=== PATIENT | female | born 1970 | race Caucasian/White ===

== ENCOUNTER 2017-09-03 15:50 | Emergency (ER) | payer SELFPAY ==
[2017-09-03 15:59] VITALS: BP 123/47
--- NOTE | 2017-09-03 16:17 | UC ---
Skin Complaint HPI - HPI Summary HPI Summary: Patient cut her right ring finger while cleaning the outside of her oven, she cut it on a piece of steel. She arrives with bleeding controlled and neuo-vasc intact. She reports full range of motion. Tetanus is up to date. - History of Current Complaint Chief Complaint: UCUpperExtremity Time Seen by Provider: 09/03/17 16:07 Stated Complaint: FINGER INJURY Hx Obtained From: Patient Hx Last Menstrual Period: 08/23/17 Onset/Duration: Sudden Onset, Lasting Hours Skin Exposure Onset/Duration: Hours Ago Timing: Constant Onset Severity: Mild Current Severity: Mild Pain Intensity: 2 Location: Discrete - right ring finger Character: Pain Aggravating Factor(s): Touch Alleviating Factor(s): Other - elevation of hand. Associated Signs & Symptoms: Positive: Negative Related History: Trauma - Allergy/Home Medications Allergies/Adverse Reactions: Allergies Allergy/AdvReac Type Severity Reaction Status Date / Time ANESTHESIA Allergy Severe Vomiting Uncoded 11/26/12 16:53 methyergonovine Allergy Intermediate Itching Uncoded 09/03/17 16:01 Review of Systems Constitutional: Negative Skin: Other - skin avulsion of right ring finger. Eyes: Negative ENT: Negative Respiratory: Negative Cardiovascular: Negative Gastrointestinal: Negative Genitourinary: Negative Motor: Negative Neurovascular: Negative Musculoskeletal: Negative Neurological: Negative Psychological: Negative All Other Systems Reviewed And Are Negative: Yes PMH/Surg Hx/FS Hx/Imm Hx Previously Healthy: Yes - Surgical History Surgical History: Yes Surgery Procedure, Year, and Place: 01/2012, ABD SURGERY FOR OVARIAN CYST 04/2002, NASAL SURGERY FOR DEVIATED SEPTUM 1985 - Family History Known Family History: Negative: Cardiac Disease, Hypertension, Diabetes - Social History Occupation: Unemployed Lives: Alone Alcohol Use: None Substance Use Type: None Smoking Status (MU): Never Smoked Tobacco - Immunization History Most Recent Influenza Vaccination: 2012 Most Recent Tetanus Shot: 2006 Physical Exam Triage Information Reviewed: Yes Appearance: Well-Appearing Vital Signs: Initial Vital Signs Temp 98.8 F 09/03/17 15:54 Pulse 79 09/03/17 15:54 Resp 20 09/03/17 15:54 BP 123/47 09/03/17 15:54 Pulse Ox 100 09/03/17 15:54 Vital Signs Reviewed: Yes Eye Exam: Normal ENT Exam: Normal Neck exam: Normal Neck: Positive: 1 Respiratory Exam: Normal Cardiovascular Exam: Normal Abdominal Exam: Normal Musculoskeletal Exam: Normal Neurological Exam: Normal Skin Exam: Other - right ring finger with skin avulsion of the proximal cuticle. bleeding controlled, and neuro-vasc intact. rom intact. Course/Dx - Course Course Of Treatment: Patient presents with skin avulsion of the right ring finger. The wound was irriagated, and the patient neuo-vasc intact. rom intact . Tetanus up to date. Bacitracin and DS with finger guard applied. Discharge instruction included wound care, keep it clean and dry, apply bacitracin and dsd daily. If increased redness, swelling, warmth or pain develop to directly to the ER for re-evaluations. Patient verbalized understanding of and in agreement with the discharge plan. - Differential Diagnoses - Skin Complaint Differential Diagnoses: Other - skin avulsion - Diagnoses Provider Diagnoses: skin avlusion Discharge - Sign-Out/Discharge Documenting (check all that apply): Patient Departure - Discharge Plan Condition: Stable Disposition: HOME Patient Education Materials: Skin Avulsion (ED) Referrals: Octavio Easton MD [Primary Care Provider] - Additional Instructions: Follow up with your doctor in three days. - Billing Disposition and Condition Condition: STABLE Disposition: Home
== END 2017-09-03 16:30 | disposition home or self-care (01) ==
LOC: UCEAST 15:50
DX: S61.214A Laceration without foreign body of right ring finger without damage to nail, initial encounter (principal); W26.8XXA Contact with other sharp object(s), not elsewhere classified, initial encounter; Y93.E9 Activity, other interior property and clothing maintenance; Y92.000 Kitchen of unspecified non-institutional (private) residence as the place of occurrence of the external cause; Z88.4 Allergy status to anesthetic agent; Z88.8 Allergy status to other drugs, medicaments and biological substances
CPT/HCPCS: 99212; G0463

== ENCOUNTER 2018-05-20 15:04 | Emergency (ER) | payer OTHER ==
[2018-05-20] MEDS ORDERED: Nicotine Inhaler* 10 MG AMP INH PRN (15:23)
[2018-05-20 16:08] LABS: Urine Appearance Cloudy; Urine Bilirubin Negative (Negative); Urine Blood Negative (Negative); Urine Color Yellow; Urine Glucose Negative (Negative); Urine Ketones Trace (Negative); Urine Nitrite Negative (Negative); Urine Protein Negative (Negative); Urine Specific Gravity 1.021 (1.010-1.030); Urine Urobilinogen Negative (Negative)
[2018-05-20 16:13] LABS: Barbiturates Urine Screen None Detected (None Detect); Benzodiazepine Urine Screen None Detected (None Detect); Urine Cannabinoids Screen None Detected (None Detect)
[2018-05-20 16:21] LABS: Hematocrit 27 % (33-41); Hemoglobin 8.4 g/dL (12.0-16.0); Mean Corpuscular HGB Conc 31 g/dL (31-36); Mean Corpuscular Hemoglobin 22 pg (27-31); Mean Corpuscular Volume 70 fL (80-97); Platelet Count 326 10^3/uL (150-450); Red Blood Count 3.87 10^6 /uL (3.70-4.87); Red Cell Distribution Width 16 % (10.5-15); White Blood Count 3.7 10^3/uL (3.5-10.8)
[2018-05-20 16:22] LABS: ABS Basophils 0.1 10^3/ul (0-0.2); ABS Eosinophils 0.1 10^3/ul (0-0.6); ABS Lymphocytes 1.6 10^3/ul (1.0-4.8); ABS Monocytes 0.3 10^3/ul (0-0.8); ABS Neutrophils 1.7 10^3/ul (1.5-7.7); ABS Nucleated RBC 0 10^3/ul; Eosinophil % 1.7 %; Lymphocyte % 43.6 %; Mean Platelet Volume 7.3 fL (7.4-10.4); Nucleated Red Blood Cells % 0
[2018-05-20 16:25] LABS: ALT 21 U/L (7-52); AST 24 U/L (13-39); Albumin/Globulin Ratio 1.6 (1-3); Alkaline Phosphatase 52 U/L (34-104); Anion Gap 5 mmol/L (2-11); BUN/Creatinine Ratio 11.8 (8-20); Blood Urea Nitrogen 9 mg/dL (6-24); CO2 Carbon Dioxide 28 mmol/L (22-32); Calcium 8.8 mg/dL (8.6-10.3); Chloride 106 mmol/L (101-111); EGFR African American 97.9 (>60); EGFR Non-African American 80.9 (>60); Globulin 2.5 g/dL (2-4); Glucose 86 mg/dL (70-100); Potassium 4.4 mmol/L (3.5-5.0); Sodium 139 mmol/L (135-145); Total Protein 6.5 g/dL (6.4-8.9)
[2018-05-20 16:41] LABS: Acetaminophen < 15 mcg/mL; Alcohol < 10 mg/dL (<10); Salicylate < 2.50 mg/dL (<30)
--- NOTE | 2018-05-20 16:46 | ED ---
Psychiatric Complaint - HPI Summary HPI Summary: The patient is a 47 y/o F presenting to [facility] accompanied by with a chief complaint of SI that has been gradually worsening over the past few days. She states that she's been stressed out while working, going to school, and taking care of her family of 7, causing her to have SI. Although her SI has since resolved, she reports a plan of "disabling the air bag in her car, using the seat-belt restraint to make sure she isn't thrown out of the car, and then crashing into a tree to induce internal decapitation." She has hx of anxiety and depression; she takes Effexor as prescribed. - History Of Current Complaint Chief Complaint: EDSuicidal Time Seen by Provider: 05/20/18 15:22 Hx Obtained From: Patient Hx Last Menstrual Period: 08/23/17 Onset/Duration: Gradual Onset, Resolved Timing: Days Severity Initially: Moderate Severity Currently: Mild Character: Depressed Aggravating Factor(s): Recent Stress Alleviating Factor(s): Nothing Associated Signs And Symptoms: Positive: Sleep Disturbance Related History: Positive For: Prior Psychiatric Issues - anxiety and depressin Has Suicidal: Reports: Thoughts, With A Plan Recent Stressor(s): school, work, family - Allergies/Home Medications Allergies/Adverse Reactions: Allergies Allergy/AdvReac Type Severity Reaction Status Date / Time ANESTHESIA Allergy Severe Vomiting Uncoded 05/20/18 15:08 methyergonovine Allergy Intermediate Itching Uncoded 05/20/18 15:08 Home Medications: Home Medications Melatonin/Pyridoxine HCl (B6) [Melatonin 3 mg Tablet] 1 each PO BEDTIME PRN [History Confirmed 05/20/18] Multivitamin [Multivitamins] 1 cap PO DAILY 05/20/18 [History Confirmed 05/20/18 ] PMH/Surg Hx/FS Hx/Imm Hx Endocrine/Hematology History: Denies: Hx Diabetes Respiratory History: Denies: Hx Asthma Opthamlomology History: Denies: Hx Legally Blind EENT History: Denies: Hx Deafness Psychiatric History: Reports: Hx Anxiety, Hx Depression - Surgical History Surgery Procedure, Year, and Place: 01/2012, ABD SURGERY FOR OVARIAN CYST 04/2002, NASAL SURGERY FOR DEVIATED SEPTUM 1985 Infectious Disease History: No Infectious Disease History: Denies: Hx Clostridium Difficile, Hx Hepatitis, Hx Human Immunodeficiency Virus (HIV), Hx of Known/Suspected MRSA, Hx Shingles, Hx Tuberculosis, Hx Known/ Suspected VRE, Hx Known/Suspected VRSA, History Other Infectious Disease, Traveled Outside the [place] in Last 30 Days - Family History Known Family History: Negative: Cardiac Disease, Hypertension, Diabetes - Social History Alcohol Use: None Hx Substance Use: No Substance Use Type: Reports: None Hx Tobacco Use: No Smoking Status (MU): Never Smoked Tobacco Review of Systems Negative: Fever, Chills Negative: Erythema Negative: Sore Throat Negative: Chest Pain Negative: Shortness Of Breath, Cough Positive: Other - NEGATIVE: changes in diet or appetite. Negative: Abdominal Pain, Vomiting, Nausea Negative: dysuria, hematuria Negative: Myalgia, Edema Negative: Rash Neurological: Other - POSITIVE: interrupted sleep; NEGATIVE: dizziness Positive: Other - SI with plan but no attempt that has resolved All Other Systems Reviewed And Are Negative: Yes Physical Exam - Summary Physical Exam Summary: General: Well appearing, no distress Cardiovascular: Skin is well perfused Pulmonary: No respiratory distress, no tachypnea Abdomen: Non-distended Skin: Warm, pink, dry Psych: Normal affect, no longer suicidal Neuro: A&Ox3 Triage Information Reviewed: Yes Vital Signs On Initial Exam: Initial Vitals Temp Pulse Resp BP Pulse Ox 98 F 78 18 147/76 98 05/20/18 15:09 05/20/18 15:09 05/20/18 15:09 05/20/18 15:09 05/20/18 15:09 Vital Signs Reviewed: Yes Diagnostics - Vital Signs Vital Signs Temp Pulse Resp BP Pulse Ox 05/20/18 15:09 98 F 78 18 147/76 98 - Laboratory Lab Results: Lab Results 05/20/18 05/20/18 05/20/18 Range/Units 13:35 15:23 16:01 WBC 3.7 (3.5-10.8) 10^3/uL RBC 3.87 (3.70-4.87) 10^6 /uL Hgb 8.4 L (12.0-16.0) g/dL Hct 27 L (33-41) % MCV 70 L (80-97) fL MCH 22 L (27-31) pg MCHC 31 (31-36) g/dL RDW 16 H (10.5-15) % Plt Count 326 (150-450) 10^3/uL MPV 7.3 L (7.4-10.4) fL Neut % (Auto) 46.3 % Lymph % (Auto) 43.6 % [place] % (Auto) 7.0 % Eos % (Auto) 1.7 % Baso % (Auto) 1.4 % Absolute Neuts (auto) 1.7 (1.5-7.7) 10^3/ul Absolute Lymphs (auto) 1.6 (1.0-4.8) 10^3/ul Absolute Monos (auto) 0.3 (0-0.8) 10^3/ul Absolute Eos (auto) 0.1 (0-0.6) 10^3/ul Absolute Basos (auto) 0.1 (0-0.2) 10^3/ul Absolute Nucleated RBC 0 10^3/ul Nucleated RBC % 0 Sodium (135-145) mmol/L Potassium (3.5-5.0) mmol/L Chloride (101-111) mmol/L Carbon Dioxide (22-32) mmol/L Anion Gap (2-11) mmol/L BUN (6-24) mg/dL Creatinine (0.51-0.95) mg/dL Est GFR ( Amer) (>60) Est GFR (Non-Af Amer) (>60) BUN/Creatinine Ratio (8-20) Glucose (70-100) mg/dL Calcium (8.6-10.3) mg/dL Total Bilirubin (0.2-1.0) mg/dL AST (13-39) U/L ALT (7-52) U/L Alkaline Phosphatase (34-104) U/L Total Protein (6.4-8.9) g/dL Albumin (3.2-5.2) g/dL Globulin (2-4) g/dL Albumin/Globulin Ratio (1-3) TSH Urine Color Yellow Urine Appearance Cloudy Urine pH 5.0 (5-9) Ur Specific [place] 1.021 (1.010-1.030) Urine Protein Negative (Negative) Urine Ketones Trace A (Negative) Urine Blood Negative (Negative) Urine Nitrate Negative (Negative) Urine Bilirubin Negative (Negative) Urine Urobilinogen Negative (Negative) Ur Leukocyte Esterase Negative (Negative) Urine Glucose Negative (Negative) Urine Ascorbic Acid * A (Negative) Salicylates Urine Opiates Screen None detected (None Detect) Acetaminophen Ur Barbiturates Screen None detected (None Detect) Ur Phencyclidine Scrn None detected (None Detect) Ur Amphetamines Screen None detected (None Detect) U Benzodiazepines Scrn None detected (None Detect) Urine Cocaine Screen None detected (None Detect) U Cannabinoids Screen None detected (None Detect) Serum Alcohol 05/20/18 Range/Units 16:01 WBC (3.5-10.8) 10^3/uL RBC (3.70-4.87) 10^6 /uL Hgb (12.0-16.0) g/dL Hct (33-41) % MCV (80-97) fL MCH (27-31) pg MCHC (31-36) g/dL RDW (10.5-15) % Plt Count (150-450) 10^3/uL MPV (7.4-10.4) fL Neut % (Auto) % Lymph % (Auto) % [place] % (Auto) % Eos % (Auto) % Baso % (Auto) % Absolute Neuts (auto) (1.5-7.7) 10^3/ul Absolute Lymphs (auto) (1.0-4.8) 10^3/ul Absolute Monos (auto) (0-0.8) 10^3/ul Absolute Eos (auto) (0-0.6) 10^3/ul Absolute Basos (auto) (0-0.2) 10^3/ul Absolute Nucleated RBC 10^3/ul Nucleated RBC % Sodium 139 (135-145) mmol/L Potassium 4.4 (3.5-5.0) mmol/L Chloride 106 (101-111) mmol/L Carbon Dioxide 28 (22-32) mmol/L Anion Gap 5 (2-11) mmol/L BUN 9 (6-24) mg/dL Creatinine 0.76 (0.51-0.95) mg/dL Est GFR ( Amer) 97.9 (>60) Est GFR (Non-Af Amer) 80.9 (>60) BUN/Creatinine Ratio 11.8 (8-20) Glucose 86 (70-100) mg/dL Calcium 8.8 (8.6-10.3) mg/dL Total Bilirubin 0.50 (0.2-1.0) mg/dL AST 24 (13-39) U/L ALT 21 (7-52) U/L Alkaline Phosphatase 52 (34-104) U/L Total Protein 6.5 (6.4-8.9) g/dL Albumin 4.0 (3.2-5.2) g/dL Globulin 2.5 (2-4) g/dL Albumin/Globulin Ratio 1.6 (1-3) TSH Pending Urine Color Urine Appearance Urine pH (5-9) Ur Specific [place] (1.010-1.030) Urine Protein (Negative) Urine Ketones (Negative) Urine Blood (Negative) Urine Nitrate (Negative) Urine Bilirubin (Negative) Urine Urobilinogen (Negative) Ur Leukocyte Esterase (Negative) Urine Glucose (Negative) Urine Ascorbic Acid (Negative) Salicylates Pending Urine Opiates Screen (None Detect) Acetaminophen Pending Ur Barbiturates Screen (None Detect) Ur Phencyclidine Scrn (None Detect) Ur Amphetamines Screen (None Detect) U Benzodiazepines Scrn (None Detect) Urine Cocaine Screen (None Detect) U Cannabinoids Screen (None Detect) Serum Alcohol Pending Result Diagrams: 05/20/18 16:01 05/20/18 16:01 Lab Statement: Any lab studies that have been ordered have been reviewed, and results considered in the medical decision making process. Course/Dx - Course Course Of Treatment: The patient is a 47 y/o F accompanied by with a chief complaint of SI that has been gradually worsening over the past few days. She states that she's been stressed out more than usual. Although her SI has since resolved, she reports a plan of "disabling the air bag in her car, using the seat-belt restraint to make sure she isn't thrown out of the car, and then crashing into a tree to induce internal decapitation." She has hx of anxiety and depression; she takes Effexor as prescribed. Upon physical exam, the patient is no longer suicidal. In the ED course, the patient was administered Nicotine inhaler. Blood work reveals decreased Hgb, Hct, MCV, MCH, and MPV; elevated RDW. UA reveals trace ketones and ascorbic acid. Toxicology report reveals no substances. Patient is cleared for mental health evaluation. She is diagnosed with anxiety by Dr. Mercado, per mental health statistical clerk advertising Bee Jensen. She will follow up with outpatient care at [facility]. She agrees with this plan and understands need for return to the ED for any new or worsening symptoms. - Differential Dx/Clinical Impression Provider Diagnosis: Anxiety - Physician Notifications Discussed Care Of Patient With: Bee Jensen - mental health statistical clerk advertising Time Discussed With Above Provider: 21:50 Instructed by Provider To: Other - Bee states that the patient can be discharged by Dr. Mercado with dx of anxiety and outpatient follow up. Discharge - Sign-Out/Discharge Documenting (check all that apply): Patient Departure - Patient will be discharged home. Patient Received Moderate/Deep Sedation with Procedure: No - Discharge Plan Condition: Stable Disposition: HOME Patient Education Materials: Help Prevent Suicide (ED), Anxiety (ED) Forms: *Work Release Referrals: [facility] [Outside] (Please follow up as soon as possible ) Octavio Easton MD [Primary Care Provider] - - Billing Disposition and Condition Condition: STABLE Disposition: Home - Attestation Statements Document Initiated by Martinaibe: Yes Documenting Scribe: Anni Pagan Provider For Whom Yareli is Documenting (Include Credential): Dr. Dhaval Pnoce MD Scribe Attestation: Anni Altman scribed for Dr. Dhaval Ponce MD on 05/21/18 at 1059. Scribe Documentation Reviewed: Yes Provider Attestation: The documentation as recorded by the Anni salazar accurately reflects the service I personally performed and the decisions made by me, Dr. Dhaval Ponce MD Status of Scribe Document: Viewed
[2018-05-20 16:57] LABS: TSH (Thyroid Stimulating Horm) 0.68 mcIU/mL (0.34-5.60)
[2018-05-20 22:11] VITALS: BP 124/53
== END 2018-05-20 22:09 | disposition home or self-care (01) ==
LOC: ED 15:04
DX: F41.9 Anxiety disorder, unspecified (principal); F32.9 Major depressive disorder, single episode, unspecified; Z88.8 Allergy status to other drugs, medicaments and biological substances
CPT/HCPCS: 36415; 80053; 80307; 80320; 80329; 81003; 84443; 85025; 99284; G0480

== ENCOUNTER → 2018-11-02 05:49 | Day surgery (SDC) | payer OTHER ==
[~2018-11-02 05:49] MED LIST: Buffered Lidocaine 1% SYRIN* 1 ML/SYRINGE INTRADERM ONE; Dexamethasone IV* 4 MG/ML 1 ML (4 MG) IV SLOW PU ONE; Dexamethasone IV* 4 MG/ML 1 ML (4 MG) ONE; DiMENhydriNATE IV* 50 MG/ML VIAL IV PUSH PRN; Famotidine IV* 10 MG/ML 2 ML (20 mg) IV ONE; Famotidine IV* 10 MG/ML 2 ML (20 mg) ONE; Ibuprofen TAB* 600 MG ONE; Ketorolac INJ* 30 MG/ML 1 ML VIAL ONE; Labetalol IV* 5 MG/ML 20 ML VIAL ONE; Lactated Ringers 1000 ML Bag* 1,000 ML IV SCH; Lidocaine 2% PF * 5 ML VIAL ONE; Midazolam* 1 MG/ML 2 ML VIAL (2 MG) ONE; Naloxone* 0.4 MG/ML 1 ML VIAL IV PRN; Ondansetron INJ* 2 MG/ML VIAL ONE; Propofol* 10 MG/ML 20 ML BTL ONE; Scopolamine 1.5 mg* PATCH ONE; Scopolamine 1.5 mg* PATCH TRANSDERM ONE; fentaNYL* 50 MCG/ML 2 ML VIAL (100 MCG VIAL) IV PRN; fentaNYL* 50 MCG/ML 2 ML VIAL (100 MCG VIAL) ONE
[2018-11-02 09:02] VITALS: BP 129/78
--- NOTE | 2018-11-02 22:01 | OP ---
DATE OF OPERATION: 11/02/18 - [facility] DATE OF : 66 SURGEON: More Coe MD ANESTHESIOLOGIST: Dr. Borjas. ANESTHESIA: General. PRE-OP DIAGNOSIS: Menorrhagia. POST-OP DIAGNOSIS: Menorrhagia. OPERATIVE PROCEDURES: Hysteroscopy, dilation and curettage, and endometrial ablation with NovaSure. ESTIMATED BLOOD LOSS: Minimal. URINE OUTPUT: 100 cc. IV FLUIDS: 700 cc lactated Ringer's. MATERIALS TO LAB: Endometrial curettings. INDICATIONS: This patient is a 47-year-old 5, para 5, who has been followed in the office with persistent, very heavy, abnormal uterine bleeding. Pelvic ultrasound was unremarkable and endometrial biopsy returned benign. After discussing her options, she desired to proceed with an endometrial ablation. She was extensively counseled and consent was signed. FINDINGS: Normal appearing uterine cavity. Endometrial ablation appeared to be effective throughout the uterine cavity afterwards. COMPLICATIONS: None. DESCRIPTION OF PROCEDURE: The risks, benefits, and alternatives were described to the patient and informed consent was obtained. The patient was taken to the operating room with IV running, where general anesthesia was induced and found to be adequate. The patient was prepped and draped in the normal sterile fashion in the high lithotomy position in [facility]. A time-out was performed. The bladder was emptied. A bivalve speculum was placed in the vagina and a single- tooth tenaculum was placed on the anterior cervix. The uterus sounded to about 8 cm and the cervix was then gently dilated using Hegar dilators. A diagnostic hysteroscope was advanced through the cervix into the uterine cavity with saline running. The uterine cavity was well visualized and appeared to be normal with no visible evidence of polyps or fibroids in the cavity. Both ostia were visualized. The uterine cavity was then curetted with a medium banjo curette and the curettings were collected on Telfa. A NovaSure device was then prepared and placed into the uterine cavity without difficulty. The cavity length was measured at 5 cm and the width was 4.1 cm. Power was calculated at 113. After a negative cavity assessment, the ablation was performed and lasted to 2 minutes. The device was then removed. The hysteroscope was replaced into the uterine cavity and there was good ablation of the entire visible cavity noted. The hysteroscope was then removed. The tenaculum was removed with good hemostasis. The speculum was then removed and the patient was returned to the supine position. The patient tolerated the procedure well. Sponge, lap and needle counts were correct x2. [id number]/[facility] #: [id number] [facility] [place] [facility]
== END | disposition home or self-care (01) ==
LOC: OR 05:49
PROVIDERS: ATTEND Obstetrics & Gynecology
DX: N92.4 Excessive bleeding in the premenopausal period (principal); I10 Essential (primary) hypertension; Z87.891 Personal history of nicotine dependence; K21.9 Gastro-esophageal reflux disease without esophagitis; F41.9 Anxiety disorder, unspecified
CPT/HCPCS: 88305; A9270-GY; J1100; J1885; J2250; J2405; J2704; J3010

== ENCOUNTER 2021-08-04 09:20 | Inpatient (IN) ==
[2021-08-04] MEDS ORDERED: Piperacillin/Tazobac ADVAN 3.375 GM in NS 0.9% 100 ml BAG 100 ML IV ONE (10:37)
[2021-08-04] MEDS ORDERED: Lactated Ringers 1000 ml BAG 1,000 ML IV ONE (10:46)
[2021-08-04] MEDS ORDERED: Piperacillin/Tazobac 3.375 GM BAG ONE (11:12)
[2021-08-04] MEDS ORDERED: Vancomycin 1,250 MG in NS 0.9% 250 ml 250 ML IVPB ONE (11:30)
[2021-08-04] MEDS ORDERED: Morphine 2 MG/ML SYRINGE IV PRN (11:47)
[2021-08-04] MEDS ORDERED: Ondansetron 4 mg VIAL 2 MG/ML 2 ml VIAL IV PRN ×2 (11:47→19:01)
[2021-08-04] MEDS ORDERED: Lactulose 30 ml UDC PO PRN (11:47)
[2021-08-04] MEDS ORDERED: Magnesium Hydroxide LIQ 30 ML UDC PO PRN (11:47)
[2021-08-04] MEDS ORDERED: Ondansetron ODT 4 mg TAB 4 MG TAB PO PRN (11:47)
[2021-08-04 12:08] LABS: ABS Lymphocytes 1.4 10^3/ul (1.0-4.8); ABS Monocytes 0.6 10^3/ul (0-0.8); ABS Neutrophils 6.6 10^3/ul (1.5-7.7); Eosinophil % 0.2 %; Hematocrit 41 % (35-47); Hemoglobin 13.3 g/dL (12.0-16.0); Lymphocyte % 16.2 %; Mean Corpuscular HGB Conc 33 g/dL (31-36); Mean Corpuscular Hemoglobin 28 pg (27-31); Mean Corpuscular Volume 86 fL (80-97); Mean Platelet Volume 7.4 fL (7.4-10.4); Platelet Count 263 10^3/uL (150-450); Red Blood Count 4.71 10^6 /uL (3.70-4.87); Red Cell Distribution Width 13 % (10-15); White Blood Count 8.6 10^3/uL (3.5-10.8)
[2021-08-04 12:42] LABS: Albumin 4.4 g/dL (3.2-5.2); Albumin/Globulin Ratio 1.7 (1-3); C Reactive Protein 8.96 mg/L (<8.01); Calcium 9.7 mg/dL (8.6-10.3); Globulin 2.6 g/dL (2-4); Total Bilirubin 1.2 mg/dL (0.2-1.0); eGFR CKD-EPI 95.7 (>60)
[2021-08-04 12:47] LABS: HCG Pregnancy 0.83 mIU/mL
[2021-08-04 13:55] LABS: Erythrocyte Sed Rate 10 mm/Hr (0-29)
[2021-08-04] MEDS ORDERED: Vancomycin per Pharmacy 1 EA NOTE FOLLOW UP SCH (15:00)
[2021-08-04] MEDS ORDERED: Buffered Lidocaine 1% SYRIN 1 ml INTRADERM ONE (16:26)
[2021-08-04] MEDS ORDERED: Scopolamine 1 mg/72hr PATCH ONE (17:34)
[2021-08-04] MEDS ORDERED: Midazolam 2 mg/2 ml VIAL 1 mg/ml 2 ml VIAL (2 mg) ONE (17:35)
[2021-08-04] MEDS ORDERED: Propofol 10 MG/ML 20 ML BTL ONE ×3 (17:36→19:02)
[2021-08-04] MEDS ORDERED: Lidocaine 2% PF 5 ML VIAL ONE (17:36)
[2021-08-04] MEDS ORDERED: Bupivacaine 0.25% SDV PF 10 ML VIAL INJ ONE (17:40)
[2021-08-04] MEDS ORDERED: Cefepime 1 GM in Dextrose 1 GM/50 ML BAG IV SCH (18:00)
[2021-08-04] MEDS ORDERED: Cefepime ADVAN 1 GM in NS 0.9% 50 ML 50 ML IVPB SCH (18:00)
[2021-08-04] MEDS ORDERED: Lidocaine 1% MPF 2 ML VIAL ONE (18:11)
[2021-08-04] MEDS ORDERED: Bupivacaine 0.25% w/EPI 10 ML SDV ONE (18:12)
[2021-08-04] MEDS ORDERED: fentaNYL 100 mcg/2 ml 50 MCG/ML VIAL ONE ×2 (18:29→19:03)
[2021-08-04] MEDS ORDERED: Bupivacaine 0.5% PF 10 ML SDV VIAL INJ ONE (18:31)
[2021-08-04] MEDS ORDERED: ceFAZolin VIAL VIAL ONE (18:34)
[2021-08-04] MEDS ORDERED: Ondansetron 4 mg VIAL 2 MG/ML 2 ml VIAL ONE (18:41)
[2021-08-04] MEDS ORDERED: Dexamethasone IV 4 MG/ML VIAL 1 ml VIAL ONE (18:41)
[2021-08-04] MEDS ORDERED: Acetaminophen IV 1 GM/100ML 100 ML IV ONE (18:52)
[2021-08-04] MEDS ORDERED: fentaNYL 100 mcg/2 ml 50 MCG/ML VIAL IV PRN (19:01)
[2021-08-04] MEDS ORDERED: Naloxone 0.4 mg VIAL 0.4 mg/ml 1 ml VIAL IV PRN (19:01)
[2021-08-04] MEDS: Lactated Ringers 1000 ml BAG 1,000 ML IV SCH (21:06)
[2021-08-04] MEDS: Cefepime 1 GM in Dextrose 1 GM/50 ML BAG IV SCH (21:10)
[2021-08-04] MEDS: Magnesium Hydroxide LIQ 30 ML UDC PO SCH (21:26)
[2021-08-04] MEDS: Vancomycin 750 MG in NS 0.9% 250 ML IVPB SCH (22:39)
[2021-08-05] MEDS: Vancomycin 750 MG in NS 0.9% 250 ML IVPB SCH ×2 (05:50→14:38)
[2021-08-05 06:35] LABS: ABS Monocytes 0.4 10^3/ul (0-0.8); ABS Neutrophils 3.9 10^3/ul (1.5-7.7); Eosinophil % 0.1 %; Hematocrit 35 % (35-47); Hemoglobin 11.9 g/dL (12.0-16.0); Lymphocyte % 18.4 %; Mean Corpuscular HGB Conc 34 g/dL (31-36); Mean Corpuscular Hemoglobin 30 pg (27-31); Mean Corpuscular Volume 87 fL (80-97); Mean Platelet Volume 7.7 fL (7.4-10.4); Platelet Count 223 10^3/uL (150-450); Red Blood Count 4.02 10^6 /uL (3.70-4.87); Red Cell Distribution Width 13 % (10-15); White Blood Count 5.3 10^3/uL (3.5-10.8)
[2021-08-05 06:50] LABS: Albumin 3.5 g/dL (3.2-5.2); Albumin/Globulin Ratio 1.7 (1-3); C Reactive Protein 22.99 mg/L (<8.01); Calcium 8.6 mg/dL (8.6-10.3); Globulin 2.1 g/dL (2-4); Potassium 4.2 mmol/L (3.5-5.0); Total Bilirubin 0.8 mg/dL (0.2-1.0); Total Protein 5.6 g/dL (6.4-8.9); eGFR CKD-EPI 105.5 (>60)
[2021-08-05] MEDS: Vitamin THERAPEUTIC TAB PO SCH (10:05)
[2021-08-05] MEDS: Magnesium Hydroxide LIQ 30 ML UDC PO SCH ×2 (10:06→21:42)
[2021-08-05] MEDS: Cefepime 1 GM in Dextrose 1 GM/50 ML BAG IV SCH ×2 (10:38→21:35)
[2021-08-05] MEDS: Venlafaxine XR 75 mg PO SCH (10:43)
[2021-08-05] MEDS ORDERED: Tetan/Diph/Pertus SYR(Tdap) 0.5 ML SYR(BOOSTRIX) use SYR contains LATEX IM ONE (11:10)
[2021-08-05] MEDS ORDERED: Vancomycin Trough Check NOTE FOLLOW UP ONE (13:30)
[2021-08-05 14:07] LABS: ABS Eosinophils 0.1 10^3/ul (0-0.6); ABS Lymphocytes 2.1 10^3/ul (1.0-4.8); ABS Monocytes 0.5 10^3/ul (0-0.8); ABS Neutrophils 3.3 10^3/ul (1.5-7.7); Eosinophil % 1.6 %; Hematocrit 35 % (35-47); Hemoglobin 11.4 g/dL (12.0-16.0); Lymphocyte % 34.6 %; Mean Corpuscular HGB Conc 33 g/dL (31-36); Mean Corpuscular Hemoglobin 28 pg (27-31); Mean Corpuscular Volume 87 fL (80-97); Mean Platelet Volume 7.4 fL (7.4-10.4); Nucleated Red Blood Cells % 0.3; Platelet Count 236 10^3/uL (150-450); Red Blood Count 4.05 10^6 /uL (3.70-4.87); Red Cell Distribution Width 13 % (10-15); White Blood Count 6.1 10^3/uL (3.5-10.8)
[2021-08-05 14:17] LABS: Activated Partial Thrombo Time 27.3 seconds (26.0-38.0); INR 1.04 (0.86-1.15)
[2021-08-05] MEDS: Heparin 5000 UNITS/ML 1 mL VIAL SUBCUT SCH ×2 (14:43→21:39)
[2021-08-05 14:46] LABS: eGFR CKD-EPI 82.4 (>60)
[2021-08-05] MEDS: Lactated Ringers 1000 ml BAG 1,000 ML IV SCH (15:02)
[2021-08-05] MEDS: Vancomycin 1000 MG in NS 0.9% 250 ML IVPB SCH (23:13)
[2021-08-06] MEDS: Lactated Ringers 1000 ml BAG 1,000 ML IV SCH ×2 (03:17→14:21)
[2021-08-06] MEDS: Vancomycin 1000 MG in NS 0.9% 250 ML IVPB SCH ×2 (05:53→14:20)
[2021-08-06] MEDS: Heparin 5000 UNITS/ML 1 mL VIAL SUBCUT SCH (08:56)
[2021-08-06] MEDS: Vitamin THERAPEUTIC TAB PO SCH (08:57)
[2021-08-06] MEDS: Venlafaxine XR 75 mg PO SCH (08:57)
[2021-08-06] MEDS: Cefepime 1 GM in Dextrose 1 GM/50 ML BAG IV SCH (08:57)
[2021-08-06] MEDS: Magnesium Hydroxide LIQ 30 ML UDC PO SCH ×2 (08:58→09:03)
[2021-08-06 16:13] VITALS: BP 135/74
[2021-08-07] MEDS ORDERED: Vancomycin Trough Check NOTE FOLLOW UP ONE (05:30)
== END 2021-08-06 17:30 | disposition home or self-care (01) | DRG 316 ==
LOC: ED 09:20 → EDHOLD 11:48 → SSU 15:11
PROVIDERS: ADMIT Orthopaedic Surgery; ATTEND Orthopaedic Surgery